=== PATIENT | male | born 1960 | race Caucasian/White ===

== ENCOUNTER 2016-08-07 07:07 | Emergency (ER) | payer BC ==
--- NOTE | 2016-08-07 07:35 | ER Document Report ---
ED General - General Chief Complaint: Irregular Pulse Stated Complaint: HEART PROBLEMS Mode of Arrival: Ambulatory Information source: Patient Notes: 55-year-old male history of SVT who was seen by myself a few months ago and refused to be admitted for evaluation with a heart rate in the 190s at that time was started on metoprolol states he did well up until when he had similar episode when to another emergency department and was given a refill the metoprolol. Patient notes he was okay until this morning when he awoke in his heart was racing again. Patient has not seen a wage and hour investigator since. Denies any fevers or chills nausea vomiting or diarrhea TRAVEL OUTSIDE OF THE [place] IN LAST 30 DAYS: No - HPI Onset: Just prior to arrival Onset/Duration: Sudden Quality of pain: No pain Severity: Moderate Pain Level: Denies Associated symptoms: Other Exacerbated by: Denies Relieved by: Denies Similar symptoms previously: Yes Recently seen / treated by doctor: Yes - Related Data Allergies/Adverse Reactions: Penicillins Allergy (Verified 08/07/16 07:17) Past Medical History - Social History Smoking Status: Never Smoker Cigarette use (# per day): No Chew tobacco use (# tins/day): No Smoking Education Provided: No Frequency of alcohol use: None Drug Abuse: None Family History: Reviewed & Not Pertinent Patient has suicidal ideation: No Patient has homicidal ideation: No Renal/ Medical History: Denies: Hx Peritoneal Dialysis Review of Systems - Review of Systems Notes: REVIEW OF SYSTEMS: CONSTITUTIONAL : Denies fever, chills, or sweats. Denies recent illness. EENT: Denies eye, ear, throat, or mouth pain or symptoms. Denies nasal or sinus congestion or discharge. Denies throat, tongue, or mouth swelling or difficulty swallowing. CARDIOVASCULAR: Admits to heart racing. RESPIRATORY: Denies cough, cold, or chest congestion. Denies shortness of breath, difficulty breathing, or wheezing. GASTROINTESTINAL: Denies abdominal pain or distention. Denies nausea, vomiting , or diarrhea. Denies blood in vomitus, stools, or per rectum. Denies black, tarry stools. Denies constipation. GENITOURINARY: Denies difficulty urinating, painful urination, burning, frequency, blood in urine, or discharge. MUSCULOSKELETAL: Denies back or neck pain or stiffness. Denies joint pain or swelling. SKIN: Denies rash, lesions or sores. HEMATOLOGIC : Denies easy bruising or bleeding. LYMPHATIC: Denies swollen, enlarged glands. NEUROLOGICAL: Denies confusion or altered mental status. Denies passing out or loss of consciousness. Denies dizziness or lightheadedness. Denies headache. Denies weakness or paralysis or loss of use of either side. Denies problems with gait or speech. Denies sensory loss, numbness, or tingling. Denies seizures. PSYCHIATRIC: Denies anxiety or stress. Denies depression, suicidal ideation, or homicidal ideation. ALL OTHER SYSTEMS REVIEWED AND NEGATIVE. Dictation was performed using [employer] voice recognition software PHYSICAL EXAMINATION: GENERAL: Well-appearing, well-nourished and in no acute distress. HEAD: Atraumatic, normocephalic. EYES: Pupils equal round and reactive to light, extraocular movements intact, sclera anicteric, conjunctiva are normal. ENT: Nares patent, oropharynx clear without exudates. Moist mucous membranes. NECK: Normal range of motion, supple without lymphadenopathy LUNGS: Breath sounds clear to auscultation bilaterally and equal. No wheezes rales or rhonchi. HEART: It is noted that the patient's heart rate was maxed at 177 on the monitor , however when I go into the room is now a Regular rate and rhythm without murmurs ABDOMEN: Soft, nontender, nondistended abdomen. No guarding, no rebound. No masses appreciated. Musculoskeletal: Normal range of motion, no pitting or edema. No cyanosis. NEUROLOGICAL: Cranial nerves grossly intact. Normal speech, normal gait. Normal sensory, motor exams PSYCH: Normal mood, normal affect. SKIN: Warm, Dry, normal turgor, no rashes or lesions noted. Physical Exam - Vital signs Vitals: Temp Pulse Resp BP Pulse Ox 97.7 F 122 H 20 118/81 98 08/07/16 07:10 08/07/16 07:10 08/07/16 07:10 08/07/16 07:10 08/07/16 07:10 Course - Re-evaluation Re-evalutation: 08/07/16 07:33 At this time patient's heart rate has resolved, he will be watched in the emergency department. He took his metoprolol dose provided to him by myself in the previous presentation. Patient therefore I believe is stable has no life- threatening issues. He will require no intervention as long as heart rate remained stable. He will be given multiple wage and hour investigator follow-up with since he has been noncompliant with this 08/07/16 09:40 Patient has not been tachycardic since his arrival. He is stable for discharge with follow-up After performing a Medical Screening Examination, I estimate there is LOW risk for RUPTURED ESOPHAGUS, PNEUMOTHORAX, PULMONARY EMBOLISM, ACUTE CORONARY SYNDROME, OR THORACIC AORTIC DISSECTION, thus I consider the discharge disposition reasonable. The patient and I have discussed the diagnosis and risks , and we agree with discharging home with close follow-up. We also discussed returning to the Emergency Department immediately if new or worsening symptoms occur. We have discussed the symptoms which are most concerning (e.g., bloody sputum, worsening pain or shortness of breath) that necessitate immediate return. - Vital Signs Vital signs: Temp Pulse Resp BP Pulse Ox 97.7 F 122 H 18 110/80 98 08/07/16 07:10 08/07/16 07:10 08/07/16 09:00 08/07/16 09:00 08/07/16 09:00 - Laboratory Result Diagrams: 08/07/16 07:40 08/07/16 07:40 Laboratory results interpreted by me: 08/07/16 07:40 Alkaline Phosphatase 440 H - Diagnostic Test Radiology reviewed: Image reviewed, Reports reviewed - EKG Interpretation by [place] EKG shows normal: Sinus rhythm, [place], Intervals, QRS Complexes - EKG is normal sinus rhythm however rhythm strip does note SVT in the 170s Discharge - Discharge Clinical Impression: SVT (supraventricular tachycardia) Condition: Stable Disposition: HOME, SELF-CARE Instructions: Paroxysmal Supraventricular Tachycardia ([facility]) Referrals: MARS HERMAN MD [ACTIVE STAFF] - Follow up as needed KASEY BLANTON MD [ACTIVE STAFF] - Follow up as needed GRISEL PORTILLO MD [EMERITUS] - Follow up as needed
[2016-08-07] MEDS ORDERED: NORMAL SALINE 1000 ML 1,000 ML IV ONE (07:37)
[2016-08-07 07:51] LABS: ABSOLUTE EOSINOPHILS # (AUTO) 0.2 10^3/uL (0.0-0.6); ABSOLUTE LYMPHOCYTES (AUTO) 1.3 10^3/uL (0.5-4.7); ABSOLUTE MONOCYTES (AUTO) 0.5 10^3/uL (0.1-1.4); ABSOLUTE NEUT (AUTO) 5.3 10^3/uL (1.7-8.2); BASOPHILS % (AUTO) 0.6 % (0-2); EOSINOPHILS % (AUTO) 2.4 % (0-6); HEMATOCRIT 45.2 % (37.9-51.0); HEMOGLOBIN 15.2 g/dL (13.5-17.0); HGB HCT DIFFERENCE 0.4; LYMPHOCYTES % (AUTO) 17.6 % (13-45); MEAN CORPUSCULAR HEMOGLOBIN 31.1 pg (27.0-33.4); MEAN CORPUSCULAR HGB CONC 33.6 g/dL (32.0-36.0); MEAN CORPUSCULAR VOLUME 93 fl (80-97); MONOCYTES % (AUTO) 7.4 % (3-13); RED BLOOD COUNT 4.87 10^6/uL (4.35-5.55); RED CELL DISTRIBUTION WIDTH 13.4 % (11.5-14.0); WHITE BLOOD COUNT 7.4 10^3/uL (4.0-10.5)
[2016-08-07 08:06] LABS: ALANINE AMINOTRANSFERASE 47 U/L (21-72); ALBUMIN 4.2 g/dL (3.5-5.0); ALKALINE PHOSPHATASE 440 U/L (38-126); ANION GAP 13 (5-19); ASPARTATE AMINO TRANSFERASE 30 U/L (17-59); BILIRUBIN,TOTAL 1.1 mg/dL (0.2-1.3); BLOOD UREA NITROGEN 19 mg/dL (7-20); CALCIUM 9.1 mg/dL (8.4-10.2); CARBON DIOXIDE 22 mmol/L (22-30); CHLORIDE 106 mmol/L (98-107); CREATININE RESULT 0.95 mg/dL (0.52-1.25); GLUCOSE 104 mg/dL (75-110); POTASSIUM 3.9 mmol/L (3.6-5.0); SODIUM 140.9 mmol/L (137-145); TOTAL PROTEIN 7.4 g/dL (6.3-8.2)
--- NOTE | 2016-08-07 08:25 | EKG REPORT ---
SEVERITY:- ABNORMAL ECG - SINUS RHYTHM MULTIPLE ATRIAL PREMATURE COMPLEXES LEFT ATRIAL ABNORMALITY NONSPECIFIC ST-T CHANGES- INFERIOR LEADS : Confirmed by: Osmany Grajeda MD 07-Aug-2016 08:25:14
[2016-08-07 09:34] VITALS: BP 110/80
== END 2016-08-07 09:50 | disposition home or self-care (01) ==
LOC: ER 07:07
DX: I47.1 Supraventricular tachycardia (principal); R00.0 Tachycardia, unspecified
CPT/HCPCS: 93005; 99285; 36415; 83735; 84443; 85025; 80053; 93010; J7030

== ENCOUNTER 2016-08-09 07:53 | Emergency (ER) | payer BC ==
[2016-08-09] MEDS ORDERED: ADENOSINE INJ/PF 6 MG/2 ML SDV IV ONE (08:12)
[2016-08-09] MEDS ORDERED: ASPIRIN 81 MG TABLET, CHEWABLE PO ONE (08:23)
[2016-08-09 08:35] LABS: ABSOLUTE BASOPHILS # (AUTO) 0.1 10^3/uL (0.0-0.2); ABSOLUTE EOSINOPHILS # (AUTO) 0.2 10^3/uL (0.0-0.6); ABSOLUTE LYMPHOCYTES (AUTO) 1.3 10^3/uL (0.5-4.7); ABSOLUTE NEUT (AUTO) 11.2 10^3/uL (1.7-8.2); BASOPHILS % (AUTO) 0.5 % (0-2); EOSINOPHILS % (AUTO) 1.2 % (0-6); HEMATOCRIT 46.1 % (37.9-51.0); HEMOGLOBIN 15.4 g/dL (13.5-17.0); HGB HCT DIFFERENCE 0.1; LYMPHOCYTES % (AUTO) 9.5 % (13-45); MEAN CORPUSCULAR HEMOGLOBIN 31.1 pg (27.0-33.4); MEAN CORPUSCULAR HGB CONC 33.5 g/dL (32.0-36.0); MEAN CORPUSCULAR VOLUME 93 fl (80-97); MONOCYTES % (AUTO) 7.1 % (3-13); RED BLOOD COUNT 4.95 10^6/uL (4.35-5.55); RED CELL DISTRIBUTION WIDTH 13.3 % (11.5-14.0); SEGMENTED NEUTROPHILS % (AUTO) 81.7 % (42-78); WHITE BLOOD COUNT 13.7 10^3/uL (4.0-10.5)
--- NOTE | 2016-08-09 08:39 | EKG REPORT ---
SEVERITY:- ABNORMAL ECG - SUPRAVENTRICULAR TACHYCARDIA LVH WITH SECONDARY REPOLARIZATION ABNORMALITY : Confirmed by: Maranda Reed 09-Aug-2016 08:38:17
[2016-08-09 09:19] LABS: PROTHROMBIN TIME 13.1 SEC (11.4-15.4)
[2016-08-09 09:21] LABS: D-DIMER 0.35 ug/mL (0.00-0.50)
[2016-08-09 09:33] LABS: ALANINE AMINOTRANSFERASE 48 U/L (21-72); ALBUMIN 4.3 g/dL (3.5-5.0); ALKALINE PHOSPHATASE 443 U/L (38-126); ANION GAP 14 (5-19); ASPARTATE AMINO TRANSFERASE 27 U/L (17-59); BILIRUBIN,TOTAL 1.4 mg/dL (0.2-1.3); BLOOD UREA NITROGEN 15 mg/dL (7-20); CALCIUM 9.4 mg/dL (8.4-10.2); CARBON DIOXIDE 22 mmol/L (22-30); CHLORIDE 106 mmol/L (98-107); CREATINE KINASE 73 U/L (55-170); CREATININE RESULT 0.83 mg/dL (0.52-1.25); GLUCOSE 92 mg/dL (75-110); MAGNESIUM 1.9 mg/dL (1.6-2.3); PHOSPHORUS 2.8 mg/dL (2.5-4.5); POTASSIUM 4.3 mmol/L (3.6-5.0); SODIUM 141.5 mmol/L (137-145); TOTAL PROTEIN 7.4 g/dL (6.3-8.2)
[2016-08-09 09:40] LABS: APPEARANCE,URINE CLEAR; BILIRUBIN,URINE NEGATIVE (NEGATIVE); GLUCOSE, URINE NEGATIVE (NEGATIVE); KETONES,URINE NEGATIVE (NEGATIVE); LEUKOCYTE ESTERASE,URINE NEGATIVE (NEGATIVE); NITRITE,URINE NEGATIVE (NEGATIVE); PROTEIN,URINE NEGATIVE (NEGATIVE); URINE SPECIFIC GRAVITY 1.004; UROBILINOGEN,URINE NEGATIVE mg/dL (<2.0)
[2016-08-09 09:40] LABS: CREATINE KINASE MB 0.54 ng/mL (<4.55)
[2016-08-09 09:41] LABS: TROPONIN I < 0.012 ng/mL
[2016-08-09 10:02] LABS: URINE BARBITURATES SCREEN NEGATIVE; URINE METHADONE SCREEN NEGATIVE; URINE OPIATES LOW NEGATIVE; URINE PHENCYCLIDINE SCREEN NEGATIVE
[2016-08-09 10:05] LABS: THYROID STIMULATING HORMONE 3.17 uIU/mL (0.47-4.68)
[2016-08-09] MEDS ORDERED: DILTIAZEM HCL 120 MG CAP.SR.24H PO ONE (12:17)
--- NOTE | 2016-08-09 12:19 | ER Document Report ---
ED General - General Chief Complaint: Arrhythmia Stated Complaint: CHEST PAIN TRAVEL OUTSIDE OF THE [place] IN LAST 30 DAYS: No - HPI Patient complains to provider of: palpitations Notes: Patient coming in for evaluation of palpitations. Patient has a history of SVT. Patient has been evaluated for this here in ER in the past. Patient currently is on metoprolol for his SVT. 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 Upon triage patient was found to have a heart rate between 160-180 patient denies fevers chills nausea vomiting abdominal pain chest pain trauma. - Related Data Allergies/Adverse Reactions: Penicillins Allergy (Verified 08/07/16 07:17) Past Medical History - Social History Smoking Status: Unknown if Ever Smoked Family History: Reviewed & Not Pertinent Renal/ Medical History: Denies: Hx Peritoneal Dialysis Review of Systems - Review of Systems Constitutional: No symptoms reported EENT: No symptoms reported Cardiovascular: Palpitations. denies: Chest pain Respiratory: No symptoms reported Gastrointestinal: No symptoms reported Genitourinary: No symptoms reported Male Genitourinary: No symptoms reported Musculoskeletal: No symptoms reported Skin: No symptoms reported Hematologic/Lymphatic: No symptoms reported Neurological/Psychological: No symptoms reported -: Yes All other systems reviewed and negative Physical Exam - Vital signs Vitals: Pulse Ox 99 08/09/16 08:10 Interpretation: Tachycardic - General General appearance: Appears well, Alert - HEENT Head: Normocephalic, Atraumatic Eyes: Normal Pupils: PERRL - Respiratory Respiratory status: No respiratory distress Chest status: Nontender Breath sounds: Normal Chest palpation: Normal - Cardiovascular Rhythm: Tachycardia Heart sounds: Normal auscultation Murmur: No - Abdominal Inspection: Normal Distension: No distension Bowel sounds: Normal Tenderness: Nontender Organomegaly: No organomegaly - Back Back: Normal, Nontender - Extremities General upper extremity: Normal inspection, Nontender, Normal color, Normal ROM , Normal temperature General lower extremity: Normal inspection, Nontender, Normal color, Normal ROM , Normal temperature, Normal weight bearing. No: Daren's sign - Neurological Neuro grossly intact: Yes Cognition: Normal Orientation: AAOx4 [place] Coma Scale Eye Opening: Spontaneous Bradley Coma Scale Verbal: Oriented [place] Coma Scale Motor: Obeys Commands Bradley Coma Scale Total: 15 Speech: Normal Motor strength normal: LUE, RUE, LLE, RLE Sensory: Normal - Psychological Associated symptoms: Normal affect, Normal mood - Skin Skin Temperature: Warm Skin Moisture: Dry Skin Color: Normal Course - Re-evaluation Re-evalutation: 08/09/16 15:04 Patient coming in with SVT. Upon establishing an IV nurse removing some tape for the patient's arm patient be old and converted himself to initially sinus tachycardia into normal sinus rhythm. Patient did have 2 episodes of SVT that were short-lived only for a few seconds. Patient's lab work revealed no critical etiology. I did discuss with Dr. VELIZ who states patient has a reentry tachycardia recommend switching from Toprol to Cardizem patient will start Cardizem this afternoon a dose of Cardizem was given to the patient prior to discharge. Prescription for a month supply of Cardizem 120 mg extended release. Patient will follow-up with Dr. VELIZ patient discharged home - Vital Signs Vital signs: Temp Pulse Resp BP Pulse Ox 98.1 F 14 103/73 97 08/09/16 12:52 08/09/16 12:01 08/09/16 12:01 08/09/16 12:01 - Laboratory Result Diagrams: 08/09/16 08:16 08/09/16 08:56 Laboratory results interpreted by me: 08/09/16 08/09/16 08:16 08:56 WBC 13.7 H Seg Neutrophils % 81.7 H Lymphocytes % 9.5 L Absolute Neutrophils 11.2 H Total Bilirubin 1.4 H Alkaline Phosphatase 443 H Critical Care Note - Critical Care Note Total time excluding time spent on procedures (mins): 35 Comments: Multiple evaluation for SVT Discharge - Discharge Clinical Impression: SVT (supraventricular tachycardia) Condition: Good Disposition: HOME, SELF-CARE Instructions: Paroxysmal Supraventricular Tachycardia ([facility]) Additional Instructions: Take medication as prescribed. Please stop metoprolol. These follow-up with Dr. VELIZ as directed Return to the ER symptoms worsen. Prescriptions: Diltiazem HCl [Cardizem Cd 120 mg Capsule] 1 cap.sr PO DAILY #30 cap.sr Forms: Return to Work Referrals: KASEY BLANTON MD [ACTIVE STAFF] - Follow up as needed
[2016-08-09 12:38] VITALS: BP 103/73
--- NOTE | 2016-08-09 20:51 | EKG REPORT ---
SEVERITY:- BORDERLINE ECG - SINUS TACHYCARDIA BORDERLINE T ABNORMALITIES, INFERIOR LEADS : Confirmed by: Maranda Reed 09-Aug-2016 20:50:41
--- NOTE | 2016-08-10 05:28 | CONSULTATION REPORT E ---
Consultation Report NAME: KARI GALLARDO : 1960 AGE: 55Y DATE: 08/09/2016 TO: KASEY BLANTON M.D. FROM: Fatoumata SANDERS, Requesting Physician HISTORY: The patient is a 55-year-old male with prior history of what sounds like PSVT. He states that he woke up this morning and had sudden onset of palpitations. There were no other symptoms such as chest pain or discomfort. The patient denies any shortness of breath. There was no dizziness or syncope. The patient came to the emergency room and at that time, prior to them giving him adenosine, the patient converted to sinus rhythm. The patient says that the first episode occurred in February and lasted for an hour and had been placed on metoprolol 25 mg p.o. q.12h. Subsequently, he had another episode last week and this was the third episode. He denies any dizziness or syncope. There are no TIA or CVA symptoms. PAST MEDICAL HISTORY: Negative for any history of hypertension. There is no history of diabetes mellitus. No history of asthma or COPD. No history of sleep apnea. No symptoms suggestive of sleep apnea. No history of pulmonary embolism. No history of DVT. No history of hemoptysis. No history of pleuritic chest pain. No history of pulmonary artery disease, [place] or anginal symptoms. No history of congenital heart disease. No history of chronic kidney disease. No history of hyper or hypothyroidism. No history of diabetes mellitus. PAST SURGICAL HISTORY: Negative. FAMILY HISTORY: Negative for coronary artery disease or any other major illnesses. ALLERGIES: THE PATIENT IS ALLERGIC TO PENICILLIN. MEDICATIONS: His home medications are just metoprolol 25 mg p.o. q.12h. REVIEW OF SYSTEMS: CONSTITUTIONAL: No history of fever, chills or rigors. No history of fatigue and generalized weakness. HEAD: No history of headaches or head injury. EYES: No history of amblyopia or diplopia. No history of amaurosis fugax. EARS: No history of hearing loss. No history of tinnitus. No history of recurrent ear infections. NOSE: No history of hay fever. No history of nosebleeds. No history of nasal polyps. MOUTH: No history of altered taste sensation. No history of ulcers in the mouth. THROAT: No history of odynophagia. No dysphagia. No history of recurrent sore throats. SKIN: No history of skin rashes. No pruritus. No history of skin cancer. No history of psoriasis. NECK: No history of goiter. No history of painful neck swelling. No history of lymphadenopathy. No history of carotid disease. LUNGS: No history of wheezing. No history of cough or sputum production. No history of asthma or COPD. No history of sleep apnea. No history of pulmonary embolism. No history of pleuritic chest pain. No hemoptysis. CARDIAC: No history of hypertension. No history of CAD, WI, or anginal symptoms. No history of congestive heart failure. No history of leg swelling. No history of pedal edema. No history of syncope. No history of dizziness. This is the third episode of palpitations. MUSCULOSKELETAL: No history of arthritis or collagen vascular disease. GASTROINTESTINAL: No history of GERD. No history of altered bowel movements. No history of fatty food intolerance. No history of hepatitis. No history of abdominal pain. ENDOCRINE: No history of diabetes mellitus. No history of polydipsia or polyuria. No history of heat or cold intolerance. No history of hypo or hyperactivity of the thyroid. RENAL: No history of renal failure. No history of UTI. No history of recurrent urinary tract infections. No history of hematuria, pyuria or dysuria. CENTRAL NERVOUS SYSTEM: No history TIA or CVA. No history of seizures, headaches, or migraines. No history of gait imbalance. No history of tic douloureux. PSYCHIATRIC: No history of anxiety or depression. No history of suicidal ideation. VASCULAR: No history of calf or buttock claudication. No history of DVT. HEMATOLOGIC: No history of bleeding diathesis. No history of anemia. No history of clotting disorders. The rest of review of systems is negative for any congestive heart failure or cardiac history of cardiomyopathy. SOCIAL HISTORY: The patient does not smoke. There is no history of EtOH abuse. DISPOSITION: The patient is a FULL CODE. His is his surrogate healthcare decision maker. PHYSICAL EXAMINATION: VITAL SIGNS: The patient is afebrile with a temperature of 98.1 degrees Fahrenheit. His pulse is 80 beats per minute. Blood pressure 103/73. Respirations are 14 per minute. O2 sats are 97% on room air. GENERAL: The patient is well built and well nourished, in no acute distress. He had SVT. His heart rate was 180 and this shows that the patient had SVT, most likely AV junito bleeding from tachycardia. HEAD: Atraumatic, normocephalic. EYES: Pupils are equal, round, regular, reactive to light and accommodation. Extraocular movements are normal. He has no conjunctival pallor. There is no scleral icterus. EARS: Tympanic membranes are intact. External auditory canals are clear. NOSE: There is no deviated nasal septum. There is no inflammation of the nasal mucous membrane. MOUTH: Mucous membranes of the mouth are moist. Tongue was moist. There are no ulcers in the mouth. THROAT: There is no redness of the oropharynx. There are no exudates. SKIN: There are no skin rashes. There is no petechia or ecchymosis. There are no skin lesions. NECK: Supple. There is no JVD. There is no lymphadenopathy. There is no goiter. Trachea is central. Carotids are equal. There is no bruit. LUNGS: Clear to auscultation and percussion. There is no chest wall tenderness. CARDIOVASCULAR: S1 and S2 are heard. There is no S3 gallop. There is no S4 gallop. There is a systolic murmur at the left sternal border at the apex with slight radiation from the apex to the axilla? Mitral regurgitation? Severity. ABDOMEN: Soft, nontender. There is no hepatosplenomegaly. Bowel sounds are present. There are no tender areas or masses. There is no rebound, guarding, or rigidity. EXTREMITIES: Femorals are well felt. There is no femoral bruit. Leg pulses are well felt. There is no pedal edema. There is no DVT or cellulitis. There is no calf tenderness. CENTRAL NERVOUS SYSTEM: The patient is conscious, awake, alert, oriented x3 with no focal deficits. PSYCHIATRIC: The patient's judgment and insight are intact. His affect is normal. DIAGNOSTIC DATA: The patient's initial EKG shows SVT at a rate of 181 beats per minute. Also, there is LVH with secondary repolarization changes. His subsequent EKG after he converted spontaneously, the EKG shows sinus tachycardia, borderline T-wave abnormalities inferior leads. His chest x-ray is negative. There is no CHF or pneumonia. The patient's white count is 13,700, hemoglobin 15.4, hematocrit is 46.1, and his platelet count is 227,000. The patient has D-dimer of 0.35. The patient's INR is 0.96, ProTime is 13.1. The patient's sodium is 141.5, potassium 4.3, chloride 106, CO2 of 22. The patient's BUN is 15, creatinine is 0.83, GFR is greater than 60. His glucose is 92. His calcium is 9.4. His phosphorus is 2.8, magnesium is 1.9. His total bilirubin is elevated at 1.4. His alkaline phosphorus is 443 and ALT is 48. His cardiac enzymes have been negative x1. His total protein is 7.4, albumin is 4.3. His TSH is 3.17, free T4 is 1.08. His urine opiate screen is negative. His urine methadone screen is negative. His urine barbiturate screen is negative. His urine phencyclidine screen is negative. His urine amphetamine screen is negative. His urine benzodiazepine screen is negative. His urine cocaine screen is negative. His urine marijuana is negative. IMPRESSION: 1. 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 2. SYSTOLIC MURMUR? MITRAL REGURGITATION? SEVERITY. RECOMMENDATIONS: I would stop the patient's metoprolol and place the patient on Cardizem CD 120 mg p.o. daily. I have also asked the patient to take aspirin 81 mg one every night. Further followup can be done as an outpatient. I have discussed the medical treatment and also discussed the possibility of ablation of an AV junito focus if this was found, but we will see the patient in the office. We will get an echocardiogram to assess the patient's LV function and the systolic murmur and also we will get a 30-day event monitor to see if the patient has been protected from recurrence of SVT with Cardizem CD. We will also simultaneously have the patient see an EP white hat hacker. I have given the patient my cellphone number and to call me if there are any problems. Note: 45 minutes spent on this case with more than 50% of the time spent on direct patient care, review the patient's medication and explaining to him duration of changing the medications. We will also later as an outpatient get a lipid level on the patient, although the patient states that in the past his lipid levels have been negative. Also, the care was coordinated with Dr. Angel, the ER physician. I think it is safe to discharge the patient home. The patient will call me if there are any problems. Note: More than 50% of the time was spent on direct patient care. Medical condition making was moderate complexity. Thanking you. DICTATING PHYSICIAN: KASEY BLANTON M.D. [id number] PHY#: [id number] ID: [id number] JOB#: [id number] ACCT: [id number] cc:KASEY BLANTON M.D. >
== END 2016-08-09 12:58 | disposition home or self-care (01) ==
LOC: ER 07:53
DX: I47.1 Supraventricular tachycardia (principal); R00.2 Palpitations; R07.9 Chest pain, unspecified; Z88.0 Allergy status to penicillin
CPT/HCPCS: 36415; 71010; 80053; 80307; 81001; 82550; 82553; 83735; 84100; 84439; 84443; 84484; 85025; 85379; 85610; 93005; 93010; 99291

== ENCOUNTER 2016-08-11 01:57 | Emergency (ER) | payer BC ==
[2016-08-11] MEDS ORDERED: ADENOSINE INJ/PF 6 MG/2 ML SDV IV ONE (02:17)
[2016-08-11] MEDS ORDERED: DILTIAZEM HCL INJ 25 MG/5 ML VIAL ONE (02:33)
[2016-08-11] MEDS ORDERED: NORMAL SALINE 1000 ML 1,000 ML IV ONE (02:34)
[2016-08-11] MEDS ORDERED: ASPIRIN 81 MG TABLET, CHEWABLE PO ONE (02:35)
[2016-08-11] MEDS ORDERED: DILTIAZEM HCL INJ 25 MG/5 ML VIAL IV ONE (02:36)
--- NOTE | 2016-08-11 02:41 | ER Document Report ---
ED Cardiac - General Chief Complaint: Irregular Pulse Stated Complaint: ACCELERATED HEART RATE Mode of Arrival: Ambulatory Information source: Patient Notes: This is a 55 -year-old male with a history of SVT who presents with a fast heart rate. He states that his symptoms began at about 7:30 tonight which was about 7 or 8 hours ago. Of note, this is his third presentation to the ER this week with tachycardia. 2 days ago he was seen in consultation by the administrative aide Dr. Roque and started on Cardizem. He states he has been compliant with his Cardizem and he did take it today. He denies any chest pain, short of breath, nausea, or diaphoresis. He states he feels fine other than a racing heartbeat. He has required adenosine cardioversion in the past. TRAVEL OUTSIDE OF THE [place] IN LAST 30 DAYS: No - Related Data Allergies/Adverse Reactions: Penicillins Allergy (Verified 08/07/16 07:17) Past Medical History - General Information source: Patient, [facility] Records - Social History Smoking Status: Never Smoker Chew tobacco use (# tins/day): No Frequency of alcohol use: None Drug Abuse: None Family History: Reviewed & Not Pertinent Patient has suicidal ideation: No Patient has homicidal ideation: No - Past Medical History Cardiac Medical History: Reports: Other - SVT Renal/ Medical History: Denies: Hx Peritoneal Dialysis Review of Systems - Review of Systems Notes: REVIEW OF SYSTEMS: CONSTITUTIONAL : Denies fever, chills, or sweats. Denies recent illness. EENT: Denies eye, ear, throat, or mouth pain or symptoms. Denies nasal or sinus congestion. CARDIOVASCULAR: Denies chest pain. As per history of present illness RESPIRATORY: Denies cough, cold, or chest congestion. Denies shortness of breath, difficulty breathing, or wheezing. GASTROINTESTINAL: Denies abdominal pain. Denies nausea, vomiting, or diarrhea. GENITOURINARY: Denies difficulty urinating, painful urination, burning, frequency, or blood in urine. MUSCULOSKELETAL: Denies neck or back pain or joint pain or swelling. SKIN: Denies rash or skin lesions. HEMATOLOGIC : Denies easy bruising or bleeding. LYMPHATIC: Denies swollen, enlarged glands. NEUROLOGICAL: Denies altered mental status or loss of consciousness. Denies headache. PSYCHIATRIC: Denies anxiety or stress or depression. ALL OTHER SYSTEMS REVIEWED AND NEGATIVE. Physical Exam - Vital signs Vitals: Temp Pulse Resp BP Pulse Ox 98.2 F 96 18 108/78 97 08/11/16 02:05 08/11/16 02:05 08/11/16 02:05 08/11/16 02:05 08/11/16 02:05 - Notes Notes: PHYSICAL EXAMINATION: GENERAL: Well-appearing, well-nourished and in no acute distress. HEAD: Atraumatic, normocephalic. EYES: Pupils equal round and reactive to light, extraocular movements intact, sclera anicteric, conjunctiva are normal. ENT: nares patent, oropharynx clear without exudates. Moist mucous membranes. NECK: Normal range of motion, supple without lymphadenopathy LUNGS: Breath sounds clear to auscultation bilaterally and equal. No wheezes rales or rhonchi. HEART: Tachycardic, Regular and rhythm without murmurs ABDOMEN: Soft, nontender, normoactive bowel sounds. No guarding, no rebound. No masses appreciated. EXTREMITIES: Normal range of motion, no pitting or edema. No cyanosis. NEUROLOGICAL: Cranial nerves grossly intact. Normal speech. No gross focal motor or sensory deficits appreciated PSYCH: Normal mood, normal affect. SKIN: Warm, Dry, normal turgor, no rashes or lesions noted. Course - Re-evaluation Re-evalutation: 08/11/16 02:40 On my initial evaluation the patient's heart rate was 180. While IVs were being started, patient was instructed to Valsalva and do vagal maneuvers. This was successful and heart rate did decrease to 100-110. Several times within the next 10 minutes he had brief return of SVT with rates in the 170s and 180s. These were transient episodes which lasted less than 30 seconds. Again he had no chest pain 08/11/16 05:06 Patient has been observed for several hours after the IV diltiazem dose and he has remained in sinus rhythm and asymptomatic. I have attempted to page and call cardiology Dr. Roque but have been unable to get a hold of him. At this time I do not see an indication for hospitalization as patient is asymptomatic, has been in sinus rhythm for several hours, and has reassuring lab evaluation. Of note, he was recently started on diltiazem 120 mg daily. At this time I will increase the dose to 240 mg and patient is instructed to call Dr. Roque later today to arrange follow-up. He will return to emergency department should his symptoms recur or should he have any chest pain or shortness of breath. He is very comfortable with this plan and all questions were answered. 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 - Vital Signs Vital signs: Temp Pulse Resp BP Pulse Ox 98.2 F 96 15 115/75 98 08/11/16 02:05 08/11/16 02:05 08/11/16 04:31 08/11/16 04:31 08/11/16 04:31 - Laboratory Result Diagrams: 08/11/16 02:45 08/11/16 02:45 Laboratory results interpreted by me: 08/11/16 08/11/16 02:45 02:45 WBC 13.8 H Seg Neutrophils % 83.2 H Lymphocytes % 8.2 L Absolute Neutrophils 11.5 H Potassium 3.3 L Carbon Dioxide 21 L Glucose 130 H Alkaline Phosphatase 402 H - Diagnostic Test Radiology reviewed: Reports reviewed - Chest x-ray negative - EKG Interpretation by Me Additional EKG results interpreted by me: 08/11/16 05:12 EKG at 0214 demonstrates supraventricular tachycardia with a rate of 180. There is ST depression noted laterally which is likely rate related. EKG at 0226 demonstrates sinus tachycardia at a rate of 114. Nonspecific T- wave changes noted. EKG at 0258 demonstrates sinus tachycardia with a rate of 106. Again nonspecific T wave changes are noted. Critical Care Note - Critical Care Note Total time excluding time spent on procedures (mins): 35 - minutes of critical care time spent in direct contact evaluating and reevaluating the patient, treating symptoms, reviewing labs and studies and speaking with family and consultants excluding any procedures Discharge - Discharge Clinical Impression: Paroxysmal SVT (supraventricular tachycardia) Condition: Stable Disposition: HOME, SELF-CARE Instructions: Paroxysmal Supraventricular Tachycardia ([facility]) Prescriptions: Diltiazem HCl [Diltiazem ER] 240 mg PO DAILY #15 capsule.er Forms: Return to Work
[2016-08-11 02:59] LABS: ABSOLUTE EOSINOPHILS # (AUTO) 0.1 10^3/uL (0.0-0.6); ABSOLUTE LYMPHOCYTES (AUTO) 1.1 10^3/uL (0.5-4.7); ABSOLUTE NEUT (AUTO) 11.5 10^3/uL (1.7-8.2); BASOPHILS % (AUTO) 0.3 % (0-2); EOSINOPHILS % (AUTO) 0.9 % (0-6); HEMATOCRIT 43.2 % (37.9-51.0); HEMOGLOBIN 14.6 g/dL (13.5-17.0); HGB HCT DIFFERENCE 0.6; LYMPHOCYTES % (AUTO) 8.2 % (13-45); MEAN CORPUSCULAR HEMOGLOBIN 31.3 pg (27.0-33.4); MEAN CORPUSCULAR HGB CONC 33.9 g/dL (32.0-36.0); MEAN CORPUSCULAR VOLUME 92 fl (80-97); MONOCYTES % (AUTO) 7.4 % (3-13); RED BLOOD COUNT 4.68 10^6/uL (4.35-5.55); RED CELL DISTRIBUTION WIDTH 13.3 % (11.5-14.0); SEGMENTED NEUTROPHILS % (AUTO) 83.2 % (42-78); WHITE BLOOD COUNT 13.8 10^3/uL (4.0-10.5)
[2016-08-11 03:08] LABS: ALANINE AMINOTRANSFERASE 40 U/L (21-72); ALBUMIN 4.1 g/dL (3.5-5.0); ALKALINE PHOSPHATASE 402 U/L (38-126); ANION GAP 15 (5-19); ASPARTATE AMINO TRANSFERASE 40 U/L (17-59); BILIRUBIN,TOTAL 1.1 mg/dL (0.2-1.3); BLOOD UREA NITROGEN 18 mg/dL (7-20); CALCIUM 9.1 mg/dL (8.4-10.2); CARBON DIOXIDE 21 mmol/L (22-30); CHLORIDE 106 mmol/L (98-107); CREATINE KINASE 65 U/L (55-170); CREATININE RESULT 0.89 mg/dL (0.52-1.25); GLUCOSE 130 mg/dL (75-110); POTASSIUM 3.3 mmol/L (3.6-5.0); SODIUM 141.7 mmol/L (137-145); TOTAL PROTEIN 7.5 g/dL (6.3-8.2)
[2016-08-11 03:20] LABS: CREATINE KINASE MB 0.49 ng/mL (<4.55)
[2016-08-11 03:27] LABS: TROPONIN I < 0.012 ng/mL
[2016-08-11] MEDS ORDERED: POTASSIUM CHLORIDE 10 MEQ TABLET.SA PO ONE (04:04)
[2016-08-11 05:18] VITALS: BP 107/81
--- NOTE | 2016-08-11 09:38 | EKG REPORT ---
SEVERITY:- ABNORMAL ECG - SINUS TACHYCARDIA ATRIAL PREMATURE COMPLEX PROBABLE LEFT ATRIAL ABNORMALITY NONSPECIFIC T ABNORMALITIES, INFERIOR LEADS : Confirmed by: Maranda Reed 11-Aug-2016 09:37:42
--- NOTE | 2016-08-11 09:38 | EKG REPORT ---
SEVERITY:- ABNORMAL ECG - SINUS TACHYCARDIA ATRIAL PREMATURE COMPLEX PROBABLE LEFT ATRIAL ABNORMALITY BORDERLINE T ABNORMALITIES, INFERIOR LEADS : Confirmed by: Maranda Reed 11-Aug-2016 09:37:27
--- NOTE | 2016-08-11 09:38 | EKG REPORT ---
SEVERITY:- ABNORMAL ECG - SUPRAVENTRICULAR TACHYCARDIA VENTRICULAR PREMATURE COMPLEX REPOLARIZATION ABNORMALITY, PROB RATE RELATED : Confirmed by: Maranda Reed 11-Aug-2016 09:37:51
== END 2016-08-11 05:29 | disposition home or self-care (01) ==
LOC: ER 01:57
DX: I47.1 Supraventricular tachycardia (principal); Z88.0 Allergy status to penicillin
CPT/HCPCS: 93005; 99291; 96374; 36415; 82553; 82550; 83735; 85025; 80053; 84484; 71010; 93010; J3490